=== PATIENT | female | born 1995 | race Caucasian/White ===

== ENCOUNTER 2022-06-14 12:57 | Emergency (ER) | payer SELFPAY ==
--- NOTE | ~2022-06-14 | XR_ITS ---
EXAMINATION: XR chest 2V 06/14/2022 16:37 INDICATION: Productive cough PROCEDURE: 2 view chest COMPARISON: 04/12/2018 FINDINGS: The lungs are clear. The cardiomediastinal silhouette is within normal limits. There are no pleural effusions. There is no pneumothorax suspected. IMPRESSION: 1: NO ACUTE CARDIOPULMONARY DISEASE. Reviewed, dictated and finalized at location L. ERATIVE EDUCATION DIRECTOR
[2022-06-14 13:33] VITALS: BP 108/62; PULSE 102; RESP 18; TEMP 37; O2SAT 99
[2022-06-14 13:59] LABS: Basophils Absolute Auto 0.1 K/mm3 (0.0-0.1); Basophils Percent Auto 1.3 % (0.2-1.2); Eosinophils Absolute Auto 0.1 K/mm3 (0-0.3); Eosinophils Percent Auto 1.7 % (0-4.4); Hematocrit 43.5 % (37.0-47.0); Hemoglobin 14.6 g/dL (12.0-15.0); Immature Granulocyte Absolute 0.01 K/mm3 (0.00-0.031); Immature Granulocyte Percent A 0.2 % (0-0.5); Lymphocytes Absolute Auto 2.53 K/mm3 (0.9-3.2); Lymphocytes Percent Auto 42.5 % (18.3-44.2); Mean Corpuscular HGB Conc 33.6 g/dl (32-36); Mean Corpuscular Hemoglobin 31.4 pg (26-34); Mean Corpuscular Volume 93.5 fl (80-100); Mean Platelet Volume 9.2 fl (7.4-10.4); Monocytes Absolute Auto 0.8 K/mm3 (0.1-0.6); Monocytes Percent Auto 13.4 % (2.6-8.5); Neutrophils Absolute Auto 2.4 K/mm3 (1.3-6.7); Neutrophils Percent Auto 40.9 % (45.5-73.1); Platelet Count Result 265 k/mm3 (150-375); Red Blood Count 4.65 M/mm3 (4.2-5.4); Red Cell Distribution Width 14.7 % (11.5-14.5)
[2022-06-14 14:12] LABS: Alanine Aminotransferase 24 U/L (6-35); Albumin Level 5.2 g/dL (3.5-5.1); Alkaline Phosphatase 62 U/L (38-126); Anion Gap 10 mmol/L (8-16); Aspartate Amino Transferase 29 U/L (14-36); Bilirubin,Total 1.4 mg/dL (0.2-1.3); Blood Urea Nitrogen 12 mg/dL (7-17); Calcium 9.2 mg/dL (8.4-10.2); Carbon Dioxide 26 mmol/L (22-30); Chloride 105 mmol/L (98-107); Estimated CRCL calculation 80 ml/min; Estimated Glomerular Filt Rate > 60; Glucose 101 mg/dL (65-110); Potassium 3.5 mmol/L (3.4-5.0); Sodium 141 mmol/L (137-145)
[2022-06-14 14:14] LABS: Acetaminophen < 10 ug/mL (10-30); Ethanol < 10 mg/dL (<10); Salicylate < 1.0 mg/dL (2-20)
[2022-06-14 14:36] LABS: Amphetamine Screen Urine Negative (Negative); Barbiturate Screen Urine Negative (Negative); Benzodiazepines Screen Urine Negative (Negative); Cannabinoid Screen Urine Positive (Negative); Cocaine Screen Urine Negative (Negative); Methadone Screen Urine Negative (Negative); Opiate Screen Urine Negative (Negative); Phencyclidine Screen Urine Negative (Negative)
[2022-06-14 14:44] LABS: SARS-CoV-2 RNA PCR Negative
[2022-06-14 14:54] LABS: Appearance Urine Cloudy (Clear); Bacteria Urine 3+ /hpf; Bilirubin Urine 1+ (Negative); Blood Urine Negative (Negative); Color Urine Dark Yellow (Yellow); Glucose Urine UA Negative (Negative); Ketones Urine Trace mg/dL (Negative); Leukocyte Esterase Ur Trace LEU/UL (Negative); Need Manual Microscopic Reviewed; Nitrate Urine Negative (Negative); Non Pathogenic Casts 0-2; Protein Urine 2+ mg/dL (Negative); Specific Grav Ur 1.032 (1.001-1.035); Squamous Epithelial Cell Urine Many /hpf (Few); pH Urine 5.5 (5.0-9.0)
[2022-06-14 15:19] LABS: Add Urine Microscopic? YES
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
--- NOTE | 2022-06-14 17:09 | PC.NURSE ---
VICK pt. medically cleared, call Crisis to evaluate.
[2022-06-14 17:25] VITALS: BP 95/75; PULSE 70; RESP 16; O2SAT 99
[2022-06-14 19:52] VITALS: BP 122/84; PULSE 74; RESP 16; O2SAT 98
== END 2022-06-14 19:58 | disposition home or self-care (01) ==
PROVIDERS: Emergency Medicine; Emergency Provider Physician Assistant
DX: F32.A Depression, unspecified (principal); N30.01 Acute cystitis with hematuria; F17.210 Nicotine dependence, cigarettes, uncomplicated; F12.90 Cannabis use, unspecified, uncomplicated; Z20.822 Contact with and (suspected) exposure to COVID-19
CPT/HCPCS: 36415; 71046; 80053; 80307; 81001; 81025; 85025; 87086; 87088; 99284; U0003; U0005

== ENCOUNTER 2023-03-04 16:52 | Emergency (ER) | payer MEDICAID, SELFPAY ==
--- NOTE | ~2023-03-04 | XR_ITS ---
EXAMINATION: XR ribs RT 2V w CXR 2V INDICATION: Right-sided rib pain TECHNIQUE: PA and lateral views of the chest and 3 views of the right ribs were obtained. COMPARISON: 06/14/2022 FINDINGS: The lungs are free of acute opacities. No pleural effusion or pneumothorax. The cardiomedia stinal silhouette is normal. No displaced rib fracture is identified. IMPRESSION: 1. No acute cardiopulmonary abnormality or evidence of displaced rib fracture. Reviewed, dictated and finalized at location F. IFICATIONS EXAMINER
[2023-03-04 16:52] VITALS: BP 125/62; PULSE 99; RESP 16; TEMP 36.8; O2SAT 98
--- NOTE | 2023-03-04 18:47 | ED.ABDPAIN ---
HPI - Abdominal Pain General Chief Complaint: Abdominal Pain Stated Complaint: abd pain Time Seen by Provider: 03/04/23 18:17 Source: patient and other (friend/roommate) Limitations: no limitations History of Present Illness HPI narrative: this is a 27-year-old female presents with complaint of right upper quadrant abdominal pain. On 02/28/2023, she was using hit the equipment on the noticed later in the day that she was having pain in this area. She she pulled a muscle. She has been intermittently diaphoretic but denies any fevers. she has occasionally been nauseated. She has been applying Slater balm to the area which helped a little. Sitting have made it worse before but this is not the case presently. Her appetite has remained okay. No sick contacts. her last menstrual period was 03/04/2023 and reported as normal. No cough. She had been having some diarrhea and then she became constipated. Related Data Allergies Allergy/AdvReac Type Severity Reaction Status Date / Time No Known Allergies Allergy Unknown Verified 03/04/23 16:54 [facility] Past Medical History Medical History (Updated 03/04/23 @ 20:07 by Chary Miles MD) No pertinent past medical history Surgical History Surgical History (Updated 06/14/22 @ 16:08 by Domi Lewis PA-C) No pertinent past surgical history Social History Social History (Updated 06/14/22 @ 16:08 by Domi Lewis PA-C) Smoking status: Current every day smoker Tobacco type: cigarettes Substance use type: marijuana Exam Narrative: GENERAL: Well-appearing, well-nourished, and in no acute distress. HEAD: Normocephalic, atraumatic. ENT: Nares clear, no rhinorrhea or epistaxis. Mucous membranes slightly tacky. NECK: Supple. CHEST: No respiratory distress. speaking in full sentences. No tenderness to palpation of ribs which Are without deformity or crepitus HEART: Regular rate and rhythm. ABDOMEN: Soft, nontender, nondistended. No rigidity or guarding. Patrick sign negative. I do not appreciate asymmetry on physical exam. Patient is able to engage muscles and demonstrates bending at the waist/mid abdomen without evidence of abdominal hernia. No ecchymosis across abdomen. EXTREMITIES: Normal range of motion. SKIN: Warm, dry, no rash. NEURO: No focal deficits. Alert and oriented x3. PSYCH: Normal mood and affect. Course Vital Signs Vital signs: Vital Signs Temperature 98.2 F 03/04/23 16:52 Pulse Rate 99 03/04/23 16:52 Respiratory Rate 16 03/04/23 16:52 Blood Pressure 125/62 03/04/23 16:52 Pulse Oximetry 98 03/04/23 16:52 Oxygen Delivery Room Air 03/04/23 16:52 Temperature 98.2 F 03/04/23 16:52 Pulse Rate 87 03/04/23 20:20 Respiratory Rate 16 03/04/23 20:20 Blood Pressure 122/75 03/04/23 20:20 Pulse Oximetry 100 03/04/23 20:20 Oxygen Delivery Room Air 03/04/23 16:52 MDM - Abdominal Pain MDM Narrative Medical decision making narrative: This is a 27 yo female who presents with RUQ abdominal pain that she appreciated over the past few days after moving heavy equipment. She believes she pulled a muscle. Physical exam is reassuring. We will proceed with obtaining basic labs and right-sided rib imaging. I had initially ordered IV fluids given patient had tacky mucous membranes. However, she is complaining about the IV catheter that is left in her arm. I did go to bedside to discuss this with her and, through shared decision-making, the IV catheter will be removed as patient is tolerating PO and this is not a critical intervention. Labs are unremarkable. test negative. Plain film imaging also without evidence of acute process. Patient is discharged in stable condition. Differential Diagnosis Differential diagnosis: Likely abdominal pain, constipation, pancreatitis, small bowel obstruction and other (rib fracture) Lab Data Attestation: I reviewed the patient's lab results
--- NOTE | 2023-03-04 19:24 | PC.NURSE ---
0 Pt refusing SL & IV fluids, pulling her hair stating I can't have anything foreign going into my body Dr. Miles informed & orders received
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
[2023-03-04 19:39] LABS: Basophils Absolute Auto 0.1 K/mm3 (0.0-0.1); Eosinophils Absolute Auto 0.1 K/mm3 (0-0.3); Eosinophils Percent Auto 0.7 % (0-4.4); Hematocrit 38.1 % (37.0-47.0); Hemoglobin 12.1 g/dL (12.0-15.0); Immature Granulocyte Absolute 0.02 K/mm3 (0.00-0.031); Immature Granulocyte Percent A 0.3 % (0-0.5); Lymphocytes Absolute Auto 2.09 K/mm3 (0.9-3.2); Lymphocytes Percent Auto 29.1 % (18.3-44.2); Mean Corpuscular HGB Conc 31.8 g/dl (32-36); Mean Corpuscular Hemoglobin 29.6 pg (26-34); Mean Corpuscular Volume 93.2 fl (80-100); Mean Platelet Volume 9.8 fl (7.4-10.4); Monocytes Absolute Auto 0.8 K/mm3 (0.1-0.6); Monocytes Percent Auto 10.4 % (2.6-8.5); Neutrophils Absolute Auto 4.2 K/mm3 (1.3-6.7); Neutrophils Percent Auto 58.5 % (45.5-73.1); Platelet Count Result 345 k/mm3 (150-375); Red Blood Count 4.09 M/mm3 (4.2-5.4); Red Cell Distribution Width 13.9 % (11.5-14.5); White Blood Count 7.2 K/mm3 (4.5-10.0)
[2023-03-04 19:49] LABS: Alanine Aminotransferase 16 U/L (6-35); Albumin Level 4.8 g/dL (3.5-5.1); Alkaline Phosphatase 90 U/L (38-126); Anion Gap 13 mmol/L (8-16); Aspartate Amino Transferase 24 U/L (14-36); Bilirubin,Total 0.6 mg/dL (0.2-1.3); Blood Urea Nitrogen 9 mg/dL (7-17); Calcium 9.7 mg/dL (8.4-10.2); Carbon Dioxide 26 mmol/L (22-30); Chloride 102 mmol/L (98-107); Estimated CRCL calculation 92 ml/min; Estimated Glomerular Filt Rate > 60; Glucose 94 mg/dL (65-110); Lipase 53 U/L (23-300); Potassium 3.4 mmol/L (3.4-5.0); Sodium 141 mmol/L (137-145)
[2023-03-04 19:56] LABS: Appearance Urine Turbid (Clear); Bacteria Urine None Seen /hpf; Bilirubin Urine Negative (Negative); Blood Urine Negative (Negative); Color Urine Yellow (Yellow); Glucose Urine UA Negative (Negative); Ketones Urine 2+ mg/dL (Negative); Leukocyte Esterase Ur Negative LEU/UL (Negative); Nitrate Urine Negative (Negative); Non Pathogenic Casts 0-2; Protein Urine Negative (Negative); RBC Urine 0-2 /hpf (0-2); Specific Grav Ur 1.014 (1.001-1.035); Squamous Epithelial Cell Urine None seen /hpf (Few); Urobilinogen Urine 0.2 mg/dL (<2.0); WBC Urine 0-5 /hpf
[2023-03-04 20:05] LABS: Add Urine Microscopic? YES
[2023-03-04 20:20] VITALS: BP 122/75; PULSE 87; RESP 16; O2SAT 100
== END 2023-03-04 20:20 | disposition home or self-care (01) ==
PROVIDERS: Emergency Provider Student in an Organized Health Care Education/Training Program
DX: R10.11 Right upper quadrant pain (principal); F17.210 Nicotine dependence, cigarettes, uncomplicated
CPT/HCPCS: 36415; 71046; 71100; 80053; 81001; 81025; 82248; 83690; 85025; 99283